=== PATIENT | male | born 1965 | race Asian ===

== ENCOUNTER 2016-07-09 23:40 | Emergency (ER) | payer SELFPAY ==
[~2016-07-09] VITALS: Ht 175.3 cm; Wt 82.0 kg
[2016-07-10] MEDS ORDERED: OxyCODONE HCL/ACETAMINOPHEN 5-325 MG TABLET PO ONE (00:45)
[2016-07-10] MEDS ORDERED: SODIUM CHLORIDE 0.9% 1,000 ML IV ONE (00:45)
[2016-07-10] MEDS ORDERED: MORPHINE SULFATE 4 MG/ML SYRINGE IVP ONE (02:45)
[2016-07-10 03:00] VITALS: BP 132/78
== END 2016-07-10 03:43 | disposition home or self-care (01) ==
LOC: EMS 23:41
DX: S82.891A Other fracture of right lower leg, initial encounter for closed fracture (principal); M25.522 Pain in left elbow; M54.2 Cervicalgia; W22.8XXA Striking against or struck by other objects, initial encounter; F17.210 Nicotine dependence, cigarettes, uncomplicated; Y93.01 Activity, walking, marching and hiking; Y92.098 Other place in other non-institutional residence as the place of occurrence of the external cause; Y99.8 Other external cause status
CPT/HCPCS: 29505; 70450; 72125; 73562; 73590; 73610; 73630; 96361; 96374; 99285; J2270; J7030

== ENCOUNTER 2018-01-18 21:42 | Emergency (ER) | payer MEDICAID ==
[~2018-01-18] VITALS: Ht 175.3 cm; Wt 81.8 kg
[2018-01-18] MEDS ORDERED: MORPHINE SULFATE 4 MG/ML SYRINGE IVP ONE (23:00)
[2018-01-18] MEDS ORDERED: ONDANSETRON HCL 4 MG/2 ML VIAL IVP ONE (23:00)
[2018-01-18 23:59] LABS: BASOPHILS % (AUTO) 0.6 % (0.0-2.0); EOSINOPHILS % (AUTO) 0.5 % (1.0-6.0); HEMOGLOBIN 15.1 g/dL (13.5-17.5); LYMPHOCYTES # (AUTO) 1.6 K/uL (1.0-4.8); LYMPHOCYTES % (AUTO) 18.3 % (22.0-44.0); MEAN CORPUSCULAR HEMOGLOBIN 31.9 pg (26.0-34.0); MEAN CORPUSCULAR VOLUME 91 fL (80-100); MONOCYTES % (AUTO) 11.1 % (2.0-9.0); NEUTROPHILS % (AUTO) 69.5 % (40.0-70.0); PLATELET COUNT (AUTO) 202 K/uL (150-450); RED BLOOD CELL COUNT(AUTO) 4.73 MIL/uL (4.50-5.90); RED CELL DISTRIBUTION WIDTH 13.5 % (11.5-14.5)
[2018-01-19 00:09] LABS: CALCIUM, TOTAL 8.9 mg/dL (8.8-10.5); CREATININE 1.32 mg/dL (0.60-1.30); POTASSIUM 3.4 mmol/L (3.5-5.1)
[2018-01-19 00:15] LABS: ALBUMIN 3.7 g/dL (3.4-5.0); BILIRUBIN,TOTAL 1.3 mg/dL (0.1-1.0); TOTAL PROTEIN, SERUM 7.8 g/dL (6.4-8.2)
[2018-01-19] MEDS ORDERED: IOVERSOL 350 MG/ML 150 ML VIAL ONE (00:23)
[2018-01-19] MEDS ORDERED: SODIUM CHLORIDE 0.9% 100 ML ONE (00:23)
[2018-01-19] MEDS ORDERED: SODIUM CHLORIDE 0.9% 1,000 ML IV ONE (00:45)
[2018-01-19 03:21] LABS: AMPHET/METH SCREEN,URINE POSITIVE (NEGATIVE); BARBITURATE SCREEN, URINE NEGATIVE (NEGATIVE); BENZODIAZEPINES SCREEN,URINE NEGATIVE (NEGATIVE); CANNABINOID SCREEN,URINE NEGATIVE (NEGATIVE); COCAINE SCREEN,URINE NEGATIVE (NEGATIVE); METHADONE SCREEN, URINE NEGATIVE (NEGATIVE); OPIATE SCREEN,URINE POSITIVE (NEGATIVE)
[2018-01-19 03:22] LABS: PHENCYCLIDINE SCREEN,URINE NEGATIVE (NEGATIVE)
[2018-01-19 03:45] VITALS: BP 127/77
== END 2018-01-19 04:26 | disposition home or self-care (01) ==
LOC: EMS 21:43
DX: S70.11XA Contusion of right thigh, initial encounter (principal); S80.811A Abrasion, right lower leg, initial encounter; F17.210 Nicotine dependence, cigarettes, uncomplicated; Z79.899 Other long term (current) drug therapy; W20.8XXA Other cause of strike by thrown, projected or falling object, initial encounter; Y93.89 Activity, other specified; Y92.89 Other specified places as the place of occurrence of the external cause; Y99.8 Other external cause status
CPT/HCPCS: 36415; 73552; 73590; 73706; 80053; 80307; 85025; 96374; 96375; 99285; J2270; J2405; J7050; Q9967

== ENCOUNTER 2019-07-19 08:19 | Emergency (ER) | payer SELFPAY ==
[~2019-07-19] VITALS: Ht 175.3 cm; Wt 81.8 kg
[2019-07-19 08:59] LABS: BASOPHILS % (AUTO) 0.4 % (0.0-2.0); EOSINOPHILS % (AUTO) 4.1 % (1.0-6.0); HEMATOCRIT 39.6 % (41-53); HEMOGLOBIN 13.5 g/dL (13.5-17.5); LYMPHOCYTES # (AUTO) 1.4 K/uL (1.0-4.8); LYMPHOCYTES % (AUTO) 32.4 % (22.0-44.0); MEAN CORPUSCULAR HEMOGLOBIN 31.8 pg (26.0-34.0); MEAN CORPUSCULAR VOLUME 94 fL (80-100); MONOCYTES # (AUTO) 0.5 K/uL (0.1-1.0); MONOCYTES % (AUTO) 12.1 % (2.0-9.0); NEUTROPHILS # (AUTO) 2.2 K/uL (1.8-7.7); PLATELET COUNT (AUTO) 127 K/uL (150-450); RED BLOOD CELL COUNT(AUTO) 4.23 MIL/uL (4.50-5.90); RED CELL DISTRIBUTION WIDTH 13.4 % (11.5-14.5)
[2019-07-19 09:07] LABS: ANION GAP 9 mmol/L (8-16); CALCIUM, TOTAL 8.3 mg/dL (8.8-10.5); CARBON DIOXIDE 25 mmol/L (22-29); CHLORIDE 106 mmol/L (98-107); CREATININE 0.71 mg/dL (0.60-1.30); GLOMERULAR FILTR. RATE CALC > 60 mL/min (>60); GLUCOSE,RANDOM 110 mg/dL (70-110); POTASSIUM 3.4 mmol/L (3.5-5.1); SODIUM SERUM 140 mmol/L (136-145); UREA NITROGEN, BLOOD 16 mg/dL (7-18)
[2019-07-19 09:12] LABS: ALANINE AMINOTRANSFERASE 173 U/L (12-78); ALBUMIN 3.3 g/dL (3.4-5.0); ALKALINE PHOSPHATASE 141 U/L (46-116); ASPARTATE AMINOTRANSFERASE 219 U/L (15-37); BILIRUBIN,TOTAL 1.7 mg/dL (0.1-1.0); TOTAL PROTEIN, SERUM 7.6 g/dL (6.4-8.2)
[2019-07-19 09:18] LABS: AMPHET/METH SCREEN,URINE POSITIVE (NEGATIVE); BARBITURATE SCREEN, URINE NEGATIVE (NEGATIVE); BENZODIAZEPINES SCREEN,URINE NEGATIVE (NEGATIVE); CANNABINOID SCREEN,URINE NEGATIVE (NEGATIVE); COCAINE SCREEN,URINE NEGATIVE (NEGATIVE); METHADONE SCREEN, URINE NEGATIVE (NEGATIVE); OPIATE SCREEN,URINE NEGATIVE (NEGATIVE)
[2019-07-19 09:18] LABS: B-TYPE NATRIURETIC PEPTIDE 46 pg/mL (0-100)
[2019-07-19 09:19] LABS: PHENCYCLIDINE SCREEN,URINE NEGATIVE (NEGATIVE)
[2019-07-19] MEDS ORDERED: POTASSIUM CHLORIDE 20 MEQ ER TABLET PO ONE (09:45)
[2019-07-19 11:29] VITALS: BP 144/87
== END 2019-07-19 11:27 | disposition home or self-care (01) ==
LOC: EMS 08:20
DX: R60.0 Localized edema (principal); E87.6 Hypokalemia; F15.90 Other stimulant use, unspecified, uncomplicated; F17.210 Nicotine dependence, cigarettes, uncomplicated; F12.90 Cannabis use, unspecified, uncomplicated; F11.90 Opioid use, unspecified, uncomplicated
CPT/HCPCS: 36415; 80053; 80307; 83880; 85025; 93970; 99284; G0480

== ENCOUNTER 2019-12-13 18:50 | Emergency (ER) | payer MEDICAID ==
[~2019-12-13] VITALS: Ht 167.6 cm; Wt 90.9 kg
[2019-12-13] MEDS ORDERED: PERTUSS(ACELL),DIPH,TET VAC/PF 0.5 ML VIAL IM ONE (20:00)
[2019-12-13] MEDS ORDERED: LIDOCAINE 1%/EPI 1:100,000 30 ML VIAL INJ ONE (20:00)
[2019-12-13 20:12] LABS: BASOPHILS % (AUTO) 0.5 % (0.0-2.0); EOSINOPHILS % (AUTO) 2.7 % (1.0-6.0); HEMATOCRIT 41.3 % (41-53); HEMOGLOBIN 13.9 g/dL (13.5-17.5); LYMPHOCYTES % (AUTO) 18.5 % (22.0-44.0); MEAN CORPUSCULAR HGB CONC 33.6 G/dL (31.0-37.0); MEAN CORPUSCULAR VOLUME 98 fL (80-100); MONOCYTES # (AUTO) 0.6 K/uL (0.1-1.0); MONOCYTES % (AUTO) 10.6 % (2.0-9.0); NEUTROPHILS # (AUTO) 3.7 K/uL (1.8-7.7); NEUTROPHILS % (AUTO) 67.7 % (40.0-70.0); PLATELET COUNT (AUTO) 100 K/uL (150-450); RED BLOOD CELL COUNT(AUTO) 4.21 MIL/uL (4.50-5.90); RED CELL DISTRIBUTION WIDTH 13.4 % (11.5-14.5)
[2019-12-13] MEDS ORDERED: POVIDONE-IODINE 10% 15 ML SOLUTION UD TP ONE (20:15)
[2019-12-13 20:34] LABS: LACTIC ACID 1.9 mmol/L (0.4-2.0)
[2019-12-13 20:50] LABS: ALANINE AMINOTRANSFERASE 160 U/L (12-78); ALBUMIN 2.7 g/dL (3.4-5.0); ALKALINE PHOSPHATASE 172 U/L (46-116); ANION GAP 10 mmol/L (8-16); ASPARTATE AMINOTRANSFERASE 237 U/L (15-37); BILIRUBIN,TOTAL 1.8 mg/dL (0.1-1.0); CALCIUM, TOTAL 8.1 mg/dL (8.8-10.5); CARBON DIOXIDE 25 mmol/L (22-29); CHLORIDE 105 mmol/L (98-107); CREATINE KINASE, TOTAL ONLY 412 U/L (39-308); CREATININE 0.71 mg/dL (0.60-1.30); GLOMERULAR FILTR. RATE CALC > 60 mL/min (>60); GLUCOSE,RANDOM 143 mg/dL (70-110); SODIUM SERUM 140 mmol/L (136-145); TOTAL PROTEIN, SERUM 6.8 g/dL (6.4-8.2); UREA NITROGEN, BLOOD 13 mg/dL (7-18)
[2019-12-13 20:57] LABS: POTASSIUM 2.9 mmol/L (3.5-5.1)
[2019-12-13] MEDS ORDERED: POTASSIUM CHL 10 MEQ/WATER 50 ML IV SCH (21:15)
[2019-12-13] MEDS ORDERED: POTASSIUM CHLORIDE 20 MEQ ER TABLET PO ONE ×2 (21:15→22:15)
[2019-12-13] MEDS ORDERED: SODIUM CHLORIDE 0.9% 1,000 ML IV ONE (21:30)
[2019-12-13 23:06] VITALS: BP 132/84
[2019-12-13] MEDS ORDERED: HYDROCODONE/ACETAMINOPHEN 10-325 MG TABLET PO ONE (23:15)
[2019-12-13] MEDS ORDERED: HYDROCODONE/ACETAMINOPHEN 10-325 MG TABLET ONE (23:16)
== END 2019-12-13 23:32 | disposition home or self-care (01) ==
LOC: EMS 18:52
DX: S01.81XA Laceration without foreign body of other part of head, initial encounter (principal); E87.6 Hypokalemia; V09.9XXA Pedestrian injured in unspecified transport accident, initial encounter; Y93.89 Activity, other specified; Y92.488 Other paved roadways as the place of occurrence of the external cause; Y99.8 Other external cause status
CPT/HCPCS: 12011; 36415; 70450; 72125; 73030; 73090; 73630; 80053; 82550; 83605; 85025; 86850; 86900; 86901; 90471; 90715; 99285; G0480; J3490

== ENCOUNTER 2021-09-17 06:39 | Emergency (ER) | payer MEDICAID ==
[~2021-09-17] VITALS: Ht 175.3 cm; Wt 95.5 kg
[2021-09-17 10:33] LABS: BASOPHILS % (AUTO) 0.3 % (0.0-2.0); EOSINOPHILS % (AUTO) 2.4 % (1.0-6.0); HEMATOCRIT 42.3 % (41-53); HEMOGLOBIN 14.2 g/dL (13.5-17.5); LYMPHOCYTES # (AUTO) 1.1 K/uL (1.0-4.8); LYMPHOCYTES % (AUTO) 21.4 % (22.0-44.0); MEAN CORPUSCULAR HGB CONC 33.4 G/dL (31.0-37.0); MEAN CORPUSCULAR VOLUME 93 fL (80-100); MONOCYTES # (AUTO) 0.7 K/uL (0.1-1.0); MONOCYTES % (AUTO) 12.2 % (2.0-9.0); NEUTROPHILS # (AUTO) 3.4 K/uL (1.8-7.7); NEUTROPHILS % (AUTO) 63.7 % (40.0-70.0); PLATELET COUNT (AUTO) 100 K/uL (150-450); RED BLOOD CELL COUNT(AUTO) 4.57 MIL/uL (4.50-5.90); RED CELL DISTRIBUTION WIDTH 14.7 % (11.5-14.5)
[2021-09-17 10:37] LABS: ANION GAP 4 mmol/L (8-16); CALCIUM, TOTAL 8.8 mg/dL (8.8-10.5); CARBON DIOXIDE 28 mmol/L (22-29); CHLORIDE 106 mmol/L (98-107); CREATININE 0.66 mg/dL (0.60-1.30); GLUCOSE,RANDOM 136 mg/dL (70-110); POTASSIUM 3.8 mmol/L (3.5-5.1); SODIUM SERUM 138 mmol/L (136-145); UREA NITROGEN, BLOOD 10 mg/dL (7-18)
[2021-09-17 10:40] LABS: GLOMERULAR FILTR. RATE CALC > 60 mL/min (>60)
[2021-09-17 10:43] LABS: ALANINE AMINOTRANSFERASE 84 U/L (12-78); ALKALINE PHOSPHATASE 127 U/L (46-116); ASPARTATE AMINOTRANSFERASE 86 U/L (15-37); BILIRUBIN,TOTAL 1.8 mg/dL (0.1-1.0); LIPASE 205 U/L (73-393); TOTAL PROTEIN, SERUM 7.3 g/dL (6.4-8.2)
[2021-09-17] MEDS ORDERED: HYDROCODONE/ACETAMINOPHEN 5-325 MG TABLET PO ONE (11:00)
[2021-09-17] MEDS ORDERED: KETOROLAC TROMETHAMINE 60 MG/2 ML VIAL IM ONE (11:00)
[2021-09-17 12:03] LABS: COVID AG,FIA SOURCE NASOPHARYNGEAL
[2021-09-17 12:33] VITALS: BP 144/72
[2021-09-17] MEDS ORDERED: BACL10TA PO (12:41)
[2021-09-17] MEDS ORDERED: IBUP-1554 PO (12:41)
[2021-09-17] MEDS ORDERED: HYDR-4723 PO ×2 (12:41→12:48)
== END 2021-09-17 13:08 | disposition home or self-care (01) ==
LOC: EMS 06:42
DX: S22.019A Unspecified fracture of first thoracic vertebra, initial encounter for closed fracture (principal); S22.029A Unspecified fracture of second thoracic vertebra, initial encounter for closed fracture; S22.039A Unspecified fracture of third thoracic vertebra, initial encounter for closed fracture; S01.01XA Laceration without foreign body of scalp, initial encounter; S20.229A Contusion of unspecified back wall of thorax, initial encounter; K70.30 Alcoholic cirrhosis of liver without ascites; F11.90 Opioid use, unspecified, uncomplicated; F12.90 Cannabis use, unspecified, uncomplicated; F15.90 Other stimulant use, unspecified, uncomplicated; F17.210 Nicotine dependence, cigarettes, uncomplicated; Z20.822 Contact with and (suspected) exposure to COVID-19; Z79.899 Other long term (current) drug therapy; Y04.0XXA Assault by unarmed brawl or fight, initial encounter; Y93.89 Activity, other specified; Y92.89 Other specified places as the place of occurrence of the external cause; Y99.8 Other external cause status
CPT/HCPCS: 99285; 70450; 87426; 80053; 83690; 84484; 85025; 36415; 72070; 72125; 72128; 72131; 96372; G0480; J1885

== ENCOUNTER 2021-10-21 00:57 | Emergency (ER) | payer MEDICAID ==
[~2021-10-21] VITALS: Ht 175.3 cm; Wt 95.5 kg
[~2021-10-21 00:57] MED LIST: BACL10TA PO; HYDR-4723 PO; IBUP-1554 PO
[2021-10-21] MEDS ORDERED: 0.9% SODIUM CHLORIDE 10 ML SYRINGE IVP PRN (01:15)
[2021-10-21] MEDS ORDERED: SODIUM CHLORIDE 0.9% 2,000 ML IV ONE (01:15)
[2021-10-21] MEDS ORDERED: CefTRIAXone 1 GM/DEXTROSE 50 ML IV ONE (01:15)
[2021-10-21 01:37] LABS: BASOPHILS % (AUTO) 0.4 % (0.0-2.0); EOSINOPHILS % (AUTO) 0.3 % (1.0-6.0); HEMATOCRIT 43.4 % (41-53); HEMOGLOBIN 14.9 g/dL (13.5-17.5); LYMPHOCYTES # (AUTO) 0.3 K/uL (1.0-4.8); LYMPHOCYTES % (AUTO) 7.9 % (22.0-44.0); MEAN CORPUSCULAR HEMOGLOBIN 31.8 pg (26.0-34.0); MEAN CORPUSCULAR HGB CONC 34.3 G/dL (31.0-37.0); MEAN CORPUSCULAR VOLUME 93 fL (80-100); MONOCYTES # (AUTO) 0.5 K/uL (0.1-1.0); MONOCYTES % (AUTO) 11.8 % (2.0-9.0); NEUTROPHILS # (AUTO) 3.5 K/uL (1.8-7.7); NEUTROPHILS % (AUTO) 79.6 % (40.0-70.0); RED BLOOD CELL COUNT(AUTO) 4.69 MIL/uL (4.50-5.90); RED CELL DISTRIBUTION WIDTH 14.1 % (11.5-14.5)
[2021-10-21 01:43] LABS: COVID AG,FIA SOURCE NASAL SWAB
[2021-10-21 01:46] LABS: ANION GAP 8 mmol/L (8-16); CARBON DIOXIDE 26 mmol/L (22-29); CHLORIDE 96 mmol/L (98-107); CREATININE 0.84 mg/dL (0.60-1.30); GLUCOSE,RANDOM 132 mg/dL (70-110); POTASSIUM 3.7 mmol/L (3.5-5.1); SODIUM SERUM 130 mmol/L (136-145); UREA NITROGEN, BLOOD 10 mg/dL (7-18)
[2021-10-21 01:51] LABS: INR 1.2 (0.9-1.1); PROTHROMBIN TIME 12.2 SEC (9.4-11.6)
[2021-10-21 01:52] LABS: ALANINE AMINOTRANSFERASE 77 U/L (12-78); ALBUMIN 3.4 g/dL (3.4-5.0); ALKALINE PHOSPHATASE 126 U/L (46-116); ASPARTATE AMINOTRANSFERASE 88 U/L (15-37); PLATELET COUNT (AUTO) 80 K/uL (150-450)
[2021-10-21 01:54] LABS: GLOMERULAR FILTR. RATE CALC > 60 mL/min (>60)
[2021-10-21 01:55] LABS: LACTIC ACID 1.2 mmol/L (0.4-2.0)
[2021-10-21] MEDS ORDERED: ACETAMINOPHEN 500 MG TABLET PO ONE (02:00)
[2021-10-21 02:05] LABS: INFLUENZA TYPE A NEGATIVE FOR TYPE A (NEGATIVE); INFLUENZA TYPE B NEGATIVE FOR TYPE B (NEGATIVE)
[2021-10-21 05:26] LABS: APPEARANCE,URINE CLEAR (CLEAR); BILIRUBIN,URINE NEGATIVE (NEGATIVE); GLUCOSE, URINE (UA) NEGATIVE (NEGATIVE); KETONES,URINE NEGATIVE (NEGATIVE); LEUKOCYTE ESTERASE ,URINE NEGATIVE (NEGATIVE); NITRATE,URINE NEGATIVE (NEGATIVE); OCCULT BLOOD,URINE NEGATIVE (NEGATIVE); PH,URINE 7.5 (5.0-8.0); PROTEIN,URINE NEGATIVE (NEGATIVE); SPECIFIC GRAVITIY, URINE 1.018 (1.003-1.030)
[2021-10-21 06:00] VITALS: BP 144/77
== END 2021-10-21 06:13 | disposition home or self-care (01) ==
LOC: EMS 00:58
DX: R50.9 Fever, unspecified (principal); B19.20 Unspecified viral hepatitis C without hepatic coma; Z20.822 Contact with and (suspected) exposure to COVID-19; F12.90 Cannabis use, unspecified, uncomplicated; F15.10 Other stimulant abuse, uncomplicated; F17.210 Nicotine dependence, cigarettes, uncomplicated; F19.90 Other psychoactive substance use, unspecified, uncomplicated
CPT/HCPCS: 99285; 96365; 76705; 71045; 87426; 80053; 81003; 83605; 85025; 85610; 87040; 87804; 36415; 93005; J0696; J7030

== ENCOUNTER 2022-07-03 13:44 | Emergency (ER) | payer MEDICAID ==
[~2022-07-03] VITALS: Ht 180.3 cm; Wt 131.8 kg
[2022-07-03 15:23] VITALS: BP 156/80
[2022-07-03] MEDS ORDERED: KETOROLAC TROMETHAMINE 30 MG/ML VIAL IM ONE (16:00)
[2022-07-03] MEDS ORDERED: LIDOCAINE 1% 10 ML VIAL SQ ONE (16:00)
[2022-07-03] MEDS ORDERED: CLINDAMYCIN HCL 150 MG CAPSULE PO ONE (16:00)
[2022-07-03] MEDS ORDERED: CLIN300C58 PO (16:33)
== END 2022-07-03 17:10 | disposition home or self-care (01) ==
LOC: EMS 13:47
DX: K04.7 Periapical abscess without sinus (principal); K02.9 Dental caries, unspecified; K75.9 Inflammatory liver disease, unspecified; F17.210 Nicotine dependence, cigarettes, uncomplicated; F12.90 Cannabis use, unspecified, uncomplicated; F15.90 Other stimulant use, unspecified, uncomplicated
CPT/HCPCS: 99284; 41800; 96372; J1885; J3490

== ENCOUNTER 2022-10-27 07:35 | Emergency (ER) | payer MEDICAID ==
[~2022-10-27] VITALS: Ht 175.3 cm; Wt 81.0 kg
[~2022-10-27 07:35] MED LIST changes: -BACL10TA PO; +BACTDSB PO; -HYDR-4723 PO; -IBUP-1554 PO
[2022-10-27 07:39] VITALS: BP 154/87; PULSE 88; RESP 16; TEMP 98.8
[2022-10-27] MEDS ORDERED: RABIES VACCINE, HUMAN DIPLOID/PF 2.5 UNITS/ML VIAL IM. ONE (08:45)
== END 2022-10-27 09:19 | disposition home or self-care (01) ==
LOC: EMS 07:35
DX: S41.152A Open bite of left upper arm, initial encounter (principal); F17.210 Nicotine dependence, cigarettes, uncomplicated; F12.90 Cannabis use, unspecified, uncomplicated; F15.90 Other stimulant use, unspecified, uncomplicated; K75.9 Inflammatory liver disease, unspecified; Z23 Encounter for immunization; W54.0XXA Bitten by dog, initial encounter; Y93.89 Activity, other specified; Y92.89 Other specified places as the place of occurrence of the external cause; Y99.8 Other external cause status
CPT/HCPCS: 90675; 99283

== ENCOUNTER 2022-11-09 23:16 | Emergency (ER) | payer MEDICAID ==
[~2022-11-09] VITALS: Ht 175.3 cm; Wt 81.8 kg
[2022-11-09 23:21] VITALS: TEMP 99.4
[2022-11-10] MEDS ORDERED: MORPHINE SULFATE 2 MG/ML SYRINGE IVP ONE (00:15)
[2022-11-10 00:28] LABS: BASOPHILS % (AUTO) 0.3 % (0.0-2.0); EOSINOPHILS % (AUTO) 1.9 % (1.0-6.0); HEMATOCRIT 42.5 % (41-53); HEMOGLOBIN 14.4 g/dL (13.5-17.5); LYMPHOCYTES # (AUTO) 1.2 K/uL (1.0-4.8); LYMPHOCYTES % (AUTO) 16.6 % (22.0-44.0); MEAN CORPUSCULAR HEMOGLOBIN 31.9 pg (26.0-34.0); MEAN CORPUSCULAR VOLUME 94 fL (80-100); MONOCYTES # (AUTO) 0.9 K/uL (0.1-1.0); MONOCYTES % (AUTO) 13.3 % (2.0-9.0); NEUTROPHILS # (AUTO) 4.8 K/uL (1.8-7.7); NEUTROPHILS % (AUTO) 67.9 % (40.0-70.0); PLATELET COUNT (AUTO) 134 K/uL (150-450); RED BLOOD CELL COUNT(AUTO) 4.51 MIL/uL (4.50-5.90); RED CELL DISTRIBUTION WIDTH 13.5 % (11.5-14.5); WHITE BLOOD COUNT (AUTO) 7.1 K/uL (4.5-11.0)
[2022-11-10 00:46] LABS: LACTIC ACID 1.1 mmol/L (0.4-2.0)
[2022-11-10 00:49] LABS: ANION GAP 8 mmol/L (8-16); CALCIUM, TOTAL 8.5 mg/dL (8.8-10.5); CARBON DIOXIDE 26 mmol/L (22-29); CHLORIDE 101 mmol/L (98-107); CREATININE 0.62 mg/dL (0.60-1.30); GLOMERULAR FILTR. RATE CALC > 60 mL/min (>60); GLUCOSE,RANDOM 130 mg/dL (70-110); POTASSIUM 3.5 mmol/L (3.5-5.1); SODIUM SERUM 135 mmol/L (136-145); UREA NITROGEN, BLOOD 11 mg/dL (7-18)
[2022-11-10 00:52] LABS: ALANINE AMINOTRANSFERASE 44 U/L (12-78); ALBUMIN 2.9 g/dL (3.4-5.0); ALKALINE PHOSPHATASE 117 U/L (46-116); ASPARTATE AMINOTRANSFERASE 52 U/L (15-37); BILIRUBIN,TOTAL 2.6 mg/dL (0.1-1.0); TOTAL PROTEIN, SERUM 7.5 g/dL (6.4-8.2)
[2022-11-10 00:56] LABS: INR 1.1 (0.9-1.1); PROTHROMBIN TIME 11.9 SEC (9.4-11.6)
[2022-11-10] MEDS ORDERED: METR500 PO (02:56)
[2022-11-10] MEDS ORDERED: CLIN300C58 PO (02:56)
[2022-11-10] MEDS ORDERED: IBUP-1492 PO (02:57)
[2022-11-10 03:06] VITALS: BP 145/74; PULSE 83; RESP 18
== END 2022-11-10 03:14 | disposition home or self-care (01) ==
LOC: EMS 23:18
DX: K61.1 Rectal abscess (principal); F10.20 Alcohol dependence, uncomplicated; F17.210 Nicotine dependence, cigarettes, uncomplicated; F12.90 Cannabis use, unspecified, uncomplicated; F15.90 Other stimulant use, unspecified, uncomplicated; Y90.9 Presence of alcohol in blood, level not specified
CPT/HCPCS: 99285; 80053; 83605; 85025; 85610; 36415; 74177; 96374; J2270

== ENCOUNTER 2022-11-12 00:59 | Emergency (ER) | payer MEDICAID ==
[~2022-11-12] VITALS: Ht 175.3 cm; Wt 81.8 kg
[~2022-11-12 00:59] MED LIST changes: -BACTDSB PO; +CLIN300C58 PO; +IBUP-1492 PO; +METR500 PO
[2022-11-12 02:47] VITALS: BP 135/70; PULSE 75; RESP 18; TEMP 98.3
== END 2022-11-12 03:54 | disposition home or self-care (01) ==
LOC: EMS 01:00
DX: K61.1 Rectal abscess (principal); F10.20 Alcohol dependence, uncomplicated; F17.210 Nicotine dependence, cigarettes, uncomplicated; F12.90 Cannabis use, unspecified, uncomplicated; F15.90 Other stimulant use, unspecified, uncomplicated; Y90.9 Presence of alcohol in blood, level not specified
CPT/HCPCS: 99281; Z7502

== ENCOUNTER 2023-06-28 15:56 | Emergency (ER) | payer MEDICAID ==
[~2023-06-28] VITALS: Ht 175.3 cm; Wt 81.8 kg
[2023-06-28 16:14] VITALS: TEMP 97.6
[2023-06-28 20:27] VITALS: BP 116/70; PULSE 78; RESP 18
[2023-06-28] MEDS: ACETAMINOPHEN 500 MG TABLET PO ONE (22:26)
== END 2023-06-28 23:55 | disposition home or self-care (01) ==
LOC: EMS 16:04
DX: S00.531A Contusion of lip, initial encounter (principal); F10.20 Alcohol dependence, uncomplicated; F17.210 Nicotine dependence, cigarettes, uncomplicated; F12.90 Cannabis use, unspecified, uncomplicated; F15.90 Other stimulant use, unspecified, uncomplicated; W50.0XXA Accidental hit or strike by another person, initial encounter; Y93.89 Activity, other specified; Y92.89 Other specified places as the place of occurrence of the external cause; Y99.8 Other external cause status
CPT/HCPCS: 70450; 70486; 72125; 99284